=== PATIENT | male | born 1995 | race Caucasian/White ===

== ENCOUNTER 2020-06-03 07:06 | Emergency (ER) | payer SELFPAY ==
[~2020-06-03] VITALS: Ht 175.3 cm; Wt 99.8 kg
[2020-06-03 07:10] VITALS: BP 151/80
--- NOTE | 2020-06-03 07:10 | NUR ---
TO CHAIR B AMBULATORY WITH P.
[2020-06-03] MEDS ORDERED: BACITRACIN OINT 500 UNITS/GM PKT TP ONE ×2 (07:25→07:30)
--- NOTE | 2020-06-03 07:32 | NUR ---
applied bacitracin and dressing to right hand without any issues
[2020-06-03 08:10] VITALS: BP 151/80
--- NOTE | 2020-06-03 08:12 | NUR ---
PATIENT BIB CH. PATIENT EXAMINED BY DR. Sy. PATIENT MEDICALLY CLEARED AND RELEASED IN CUSTODY IN STABLE CONDITION. ORIGINAL PRE-BOOK FORM GIVEN TO OFFICER Saul.
== END 2020-06-03 08:12 ==
LOC: MED 07:06
DX: S61.411A Laceration without foreign body of right hand, initial encounter (principal); F10.20 Alcohol dependence, uncomplicated; Z02.89 Encounter for other administrative examinations; W22.01XA Walked into wall, initial encounter; Y93.89 Activity, other specified; Y92.89 Other specified places as the place of occurrence of the external cause; Y99.8 Other external cause status
CPT/HCPCS: 99283